=== PATIENT | female | born 1955 | race African-American/Black ===

== ENCOUNTER → 2019-10-12 | Day surgery (SDC) | payer BC, OTHER ==
--- NOTE | 2019-10-16 16:49 | PATH ---
Surgical Pathology Report Patient Name: CARTER GRAVES [facility]. Rec. #: [id number] /Age/Gender: 1955 (Age: 64) / F Account: [id number] Location: [facility] Taken: 10/12/2019 Received: 10/12/2019 Reported: 10/16/2019 Physicians: Blade Girard M.D. Specimen(s) Received AXILLARY LYMPH NODE, LEFT Clinical History Ultrasound findings: Highly suspicious less malignant Newly diagnosed left breast cancer Final Diagnosis AXILLARY LYMPH NODE, LEFT, CORE BIOPSY: METASTATIC CARCINOMA EXTENSIVELY INVOLVING LYMPH NODE. SEE COMMENT. Comment: Prior left breast carcinoma reviewed and appears morphologically similar ([id number]). Breast biomarker and stains pending, findings will be reported separately. Case seen in intradepartmental review with consensus on diagnosis. Findings discussed with Drs. Hines and Richi, 10/16/19. Electronically Signed Antonia Mauro M.D. Addendum Reported: 10/18/2019 Addendum Diagnosis Immunohistochemical stain performed and interpreted at [facility] show the tumor is positive for CK7. Additional immunohistochemical stain performed at [place], [place] ([id number]) and interpreted at [facility] show the tumor is positive for SHARON-3. The above immunophenotype supports breast origin. Results of (Progesterone Receptor) PgR studies performed at [facility] are as follows: PgR (clone16 mouse monoclonal antibody by [employer]): _X_ Negative Results of (Estrogen Receptor) ER, Her2 (IHC) & Ki-67 studies performed at [place], [place] ([id number]) are as follows: ER (clone [id number] mouse monoclonal antibody by [employer]): _X_ Negative Her2 IHC (EP3 from [employer], formerly known as [id number], using [employer] Polymer Refine detection kit): 1+ (Negative) Ki-67: ~40% (High proliferative index). Positive and negative controls (internal if applicable) show appropriate results. Formalin fixation and cold ischemic times are within current ASCO/CAP recommendations for ER, SD and Her2 testing. Antonia Mauro M.D. Gross Description Received in formalin labeled "left axillary lymph node," is a 2.3 x 1.8 x 0.3 cm aggregate of multiple clement-yellow, irregular to cylindrical portions of fibroadipose tissue. The formalin is filtered and the specimen is entirely submitted in one cassette. Time to formalin fixation: 2 minutes Total formalin fixation time: Approximately 6 hours. 10/15/201910/15/2019
== END | disposition home or self-care (01) ==
LOC: FRADUS-SUR 13:40
PROVIDERS: ATTEND Surgery Surgical Oncology
PROC: 07B63ZX Excision of Left Axillary Lymphatic, Percutaneous Approach, Diagnostic (ICD-10-PCS; principal; 2019-10-12)
PROC: BH41ZZZ Ultrasonography of Left Breast (ICD-10-PCS; 2019-10-12)
DX: C77.3 Secondary and unspecified malignant neoplasm of axilla and upper limb lymph nodes (principal); R59.9 Enlarged lymph nodes, unspecified
CPT/HCPCS: 76942-TC; 87899; 88305-TC; 88342-TC; A4648